=== PATIENT | male | born 1990 | race Two or more races ===

== ENCOUNTER 2017-08-21 11:01 | Emergency (ER) | payer SELFPAY | END 2017-08-21 12:55 | disposition left against medical advice (07) | LOC: D.ER 11:01 | DX: R21 Rash and other nonspecific skin eruption (principal) ==

== ENCOUNTER 2017-08-22 09:23 | Emergency (ER) | payer SELFPAY | END 2017-08-22 10:42 | disposition home or self-care (01) | LOC: D.ER 09:23 | DX: L25.9 Unspecified contact dermatitis, unspecified cause (principal) ==